=== PATIENT | female | born 1990 | race Caucasian/White ===

== ENCOUNTER 2022-01-28 23:04 | Inpatient (IN) ==
[2022-01-28] MEDS ORDERED: OXYTOCIN 30 UNITS/500 ML BAG IV PRN (23:22)
--- NOTE | 2022-01-28 23:27 | History & Physical Report ---
Date of Service January 28, 2022 Assessment & Plan (1) Active labor at term: Plan: 31-year-old at 40 weeks and 4 days of gestation presenting with regular contractions and change in her cervix, Vital signs stable afebrile, GBS negative, heart rate reassuring, Plan to admit, labs, IV fluids and epidural for pain per patient request, Continue to monitor closely. (2) Uterine contractions at greater than 20 weeks of gestation: (3) Hypothyroid in , antepartum: History of Present Illness Primary Care Provider: NO PCP Is a 31-year-old G1, P0 at 40 weeks and 4 days of gestation who has been feeling contractions since 1 AM this morning. They got more regular and painful after 9:30 p.m. She has been feeling them every 5 minutes and getting more painful and desires epidural for pain. She denies leakage of fluid or vaginal bleeding. She reports good movements. GBS negative CoronaVirus testing was negative yesterday Her has been uncomplicated except, 1. Hypothyroidism during , on levothyroxine, 2. Depression during , on Zoloft, doing well, 3. Obesity Allergies Allergy/AdvReac Type Severity Reaction Status Date / Time No Known Allergies Allergy Verified 06/20/21 15:39 Home Medications Medication Instructions Recorded Confirmed Type metoclopramide HCl 10 mg tablet 10 mg PO Q6H PRN #30 tab 06/03/21 06/20/21 Rx (Reglan) levothyroxine 100 mcg tablet 100 mcg PO DAILY 06/12/21 06/20/21 History (Synthroid) prenat.vits,kevin,[id number] 1 tab PO DAILY 06/12/21 06/20/21 History ondansetron HCl 4 mg tablet 4 mg PO Q6H PRN #20 tab 08/28/21 Rx (Zofran) Patient History Medical History Varicella vaccination Surgical History S/P sinus surgery Family History Mother Thyroid disease Grandmother (Maternal) Thyroid disease Denies family history of Ovarian cancer Breast cancer Colorectal cancer Social History Smoking Status: Never smoker marital status: marital status details: Eugene Thacker (31) [phone] Current Living Situation: Spouse Current Living Situation Comment: lives with spouse, cat-spouse changing litter current occupational status: employed 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 Review of Systems as per Subjective / HPI Physical Exam Constitutional: WD/WN, vitals as above well developed, well nourished, + acute distress (Contractions only) and + obese Gastrointestinal (Abdomen): normal bowel sounds, soft, nontender, no hepatosplenomegaly (Gravid) Genitourinary: normal external appearance OB Exam Abdomen: + vertex Manual OB Exam: + cervical dilation 4 cm, + cervical effacement 70% and + station -2 OB Exam Monitor Tracing: + external uterine monitor used and + category I
[2022-01-28] MEDS ORDERED: ONDANSETRON INJ 2 MG/ML 2 ML VIAL IV PRN (23:28)
[2022-01-29 00:08] LABS: Hematocrit (blood only) 36.5 % (37-47); Hemoglobin 12.1 g/dL (12.0-16.0); Mean Corpuscular Hemoglobin 30.9 pg (25-34); Mean Corpuscular Hgb Conc 33.2 g/dL (32-36); Mean Corpuscular Volume 93.4 fL (80-100); Mean Platelet Volume 9.8 fL (7.4-10.4); Platelet Count 286 K/uL (130-400); RDW Coefficient of Variation 14.6 % (11.5-14.5); RDW Standard Deviation 49.4 fL (36.4-46.3); Red Blood Count 3.91 M/uL (4.2-5.4); White Blood Count 16.12 K/uL (4.8-10.8)
[2022-01-29] MEDS: LACTATED RINGER'S 1,000 ML IV PRN ×4 (03:51→18:03)
[2022-01-29] MEDS ORDERED: ePHEDrine sulfate 50 MG/ML AMP ONE (04:09)
[2022-01-29] MEDS ORDERED: BUPIVACAINE 0.25% 30 ML VIAL ONE (04:10)
[2022-01-29] MEDS ORDERED: fentaNYL 2MCG/ML ROPIVACAINE 1.25MG/ML 100 ML BAG EPI ONE (04:10)
[2022-01-29] MEDS ORDERED: SODIUM CHLORIDE 0.9% INJ 10 ML VIAL ONE (04:10)
[2022-01-29] MEDS ORDERED: fentaNYL citrate 100 MCG/2 ML VIAL ONE (04:10)
[2022-01-29] MEDS ORDERED: diphenhydrAMINE 50 MG/ML VIAL IV PRN (04:28)
[2022-01-29] MEDS ORDERED: NALOXONE HCL 0.4 MG/1 ML VIAL/CARP IV PRN (04:28)
[2022-01-29] MEDS ORDERED: NALOXONE HCL 1 MG in SODIUM CHLORIDE 0.9% 1000ML 1,000 ML IV PRN (04:28)
[2022-01-29] MEDS ORDERED: fentaNYL 2MCG/ML ROPIVACAINE 1.25MG/ML 100 ML BAG EPI PRN (04:28)
[2022-01-29] MEDS ORDERED: NALBUPHINE HCL INJ 10 MG/ML AMP IV PRN (04:28)
[2022-01-29] MEDS ORDERED: ePHEDrine sulfate 50 MG/ML AMP IV PRN (04:28)
--- NOTE | 2022-01-29 04:28 | Anesthesiology Consultation ---
Date of Service January 29, 2022 Assessment & Plan (1) Encounter for pre-operative examination: Chart Review Chart Review: Acceptable Risk for Surgery and Patient NOT seen in Pre Admission Testing Consults Requested none History Height/Weight Height: 5 ft 9 in Weight: 113.398 kg Allergies Allergy/AdvReac Type Severity Reaction Status Date / Time No Known Allergies Allergy Verified 06/20/21 15:39 Medications Home Medications Medication Instructions Recorded Confirmed Last Taken metoclopramide HCl 10 mg tablet 10 mg PO Q6H PRN #30 tab 06/03/21 01/29/22 Unknown (Reglan) levothyroxine 100 mcg tablet 100 mcg PO DAILY 06/12/21 01/29/22 06/19/21 (Synthroid) prenat.vits,kevin,jrh-gfrt-[id number] 1 tab PO DAILY 06/12/21 01/29/22 06/19/21 ondansetron HCl 4 mg tablet 4 mg PO Q6H PRN #20 tab 08/28/21 01/29/22 01/28/22 22:00 (Zofran) Active Medications Generic Name Dose Route Start Last Admin Trade Name Freq PRN Reason Stop Dose Admin Lactated Ringer's 1,000 mls @ 150 mls/hr 01/28/22 23:22 01/29/22 03:51 Lr IV 01/30/22 23:21 999 mls/hr .[id number] PRN Administration L&D Protocol Protocol Past Medical History Medical History Varicella vaccination Past Family History Family History Mother Thyroid disease Grandmother (Maternal) Thyroid disease Denies family history of Ovarian cancer Breast cancer Colorectal cancer Past Surgical History Surgical History S/P sinus surgery Social History Smoking Status: Never smoker Hx Alcohol Use: No Hx Substance Use: No Physical Exam Vital Signs Last Vital Signs Pulse 85 01/29/22 03:47 BP 125/91 01/29/22 03:47 Testing Laboratory Results 01/28/22 23:41 Blood Type A Positive 01/28/22 23:46 Antibody Screen NEGATIVE 01/28/22 23:46
[2022-01-29] MEDS: LEVOTHYROXINE SODIUM 100 MCG TABLET PO SCH (07:05)
[2022-01-29] MEDS ORDERED: OXYTOCIN 30 UNITS/500 ML BAG IV PRN ×2 (07:06→21:11)
[2022-01-29] MEDS: SERTRALINE HCL 50 MG TABLET PO SCH (08:45)
[2022-01-29] MEDS ORDERED: ACETAMINOPHEN 325 MG TAB PO PRN (15:59)
[2022-01-29] MEDS ORDERED: CALCIUM CARBONATE 500 MG CHEWABLE TAB PO PRN (18:30)
[2022-01-29] MEDS ORDERED: CALCIUM CARBONATE 500 MG CHEWABLE TAB ONE (18:33)
--- NOTE | 2022-01-29 20:46 | Delivery Summary ---
Vaginal Delivery Summary Date of Service January 29, 2022 Vaginal Delivery Summary Delivery Note live female KAYDEN over intact perineum with nuchal cord x1 reduced at delivery with delayed cord clamping and Apgars 8/9 weight pending. Cord blood obtained followed by spontaneous delivery of intact placenta. first degree tear repaired with 3/0 Vicryl suture. EBL 150 ml. Final sponge, needle and instrument count are correct. Mom and baby stable.
[2022-01-29] MEDS ORDERED: HYDROCORTISONE ACETATE 25 MG SUPP PR PRN (21:11)
[2022-01-29] MEDS ORDERED: BENZOCAINE 20% AER SPR 82.5 GM CAN EXT PRN (21:11)
[2022-01-29] MEDS ORDERED: bisacodyL 10 MG SUPP PR PRN (21:11)
[2022-01-29] MEDS ORDERED: DIPHTHERIA/TETANUS/PERTUSSIS 0.5 ML SYR/VIAL IM ONE (21:11)
--- NOTE | 2022-01-29 21:17 | Anesthesia Procedure Note ---
Date of Service January 29, 2022 Anesthesia Post Epidural Note Vital Signs Vital Signs: Temp Pulse Resp BP Pulse Ox 37.1 C 91 H 18 134/75 96 01/29/22 19:00 01/29/22 21:03 01/29/22 19:00 01/29/22 21:03 01/29/22 20:28 Pain Intensity Bilateral Sacrum: Pain Intensity: 9 Notes Mental Status: alert / awake / arousable and participated in evaluation Patient Amnestic to Procedure: Yes Nausea / Vomiting: adequately controlled Pain: adequately controlled Airway Patency, RR, SpO2: stable & adequate BP & HR: stable & adequate Hydration State: stable & adequate Anesthetic Complications: no major complications apparent and Pt Satisfied with anesthetic care
[2022-01-29] MEDS: IBUPROFEN 600 MG TAB PO PRN (23:27)
[2022-01-30] MEDS: DOCUSATE SODIUM 100 MG CAP PO SCH ×3 (01:16→20:34)
[2022-01-30] MEDS: IBUPROFEN 600 MG TAB PO PRN ×4 (03:26→20:34)
[2022-01-30] MEDS: LEVOTHYROXINE SODIUM 100 MCG TABLET PO SCH (06:16)
[2022-01-30] MEDS: ACETAMINOPHEN 325 MG TAB PO PRN (06:20)
[2022-01-30 06:28] LABS: Hematocrit (blood only) 27.9 % (37-47); Hemoglobin 9.2 g/dL (12.0-16.0); Mean Corpuscular Hemoglobin 31.3 pg (25-34); Mean Corpuscular Volume 94.9 fL (80-100); Mean Platelet Volume 9.7 fL (7.4-10.4); Platelet Count 257 K/uL (130-400); RDW Coefficient of Variation 14.9 % (11.5-14.5); RDW Standard Deviation 51.7 fL (36.4-46.3); Red Blood Count 2.94 M/uL (4.2-5.4)
--- NOTE | 2022-01-30 07:24 | Obstetrical Progress Note ---
Date of Service January 30, 2022 Assessment & Plan Admission and Anticipated Discharge Date Admission Date: January 28, 2022 Subjective Patient is seen and examined. She feels well, no complaints other than being tired. Ambulating without dizziness Voiding without difficulty Tolerating regular diet with out N&V Bleeding is minimal No fever/ chills/ CP/ SOB/ N&V/ Leg pain Breast feeding without problems Vital Signs Temp Pulse Pulse Resp BP BP Pulse Ox 01/30/22 03:05 37.2 C 89 20 104/69 97 01/29/22 23:20 36.9 C 113 H 20 111/76 97 01/29/22 22:03 102 H 114/65 01/29/22 21:48 96 H 120/73 01/29/22 21:33 105 H 120/70 01/29/22 21:18 88 121/70 01/29/22 21:03 91 H 134/75 01/29/22 21:01 93 H 135/80 01/29/22 20:33 193 H 156/118 H 01/29/22 20:28 125 H 96 01/29/22 20:23 153 H 96 01/29/22 20:18 149 H 151/117 H 96 01/29/22 20:13 130 H 96 01/29/22 20:08 101 H 97 01/29/22 20:03 99 H 126/67 96 01/29/22 19:58 97 H 95 01/29/22 19:53 93 H 96 01/29/22 19:48 87 128/65 96 01/29/22 19:43 87 100 01/29/22 19:38 82 100 01/29/22 19:35 87 116/71 01/29/22 19:33 87 100 01/29/22 19:28 83 100 Lab Results 01/28/22 01/28/22 01/30/22 Range/Units 23:41 23:46 05:47 WBC 16.12 H 18.20 H (4.8-10.8) K/uL RBC 3.91 L 2.94 L (4.2-5.4) M/uL Hgb 12.1 9.2 L (12.0-16.0) g/dL Hct 36.5 L 27.9 L (37-47) % MCV 93.4 94.9 (80-100) fL MCH 30.9 31.3 (25-34) pg MCHC 33.2 33.0 (32-36) g/dL RDW Std Deviation 49.4 H 51.7 H (36.4-46.3) fL RDW Coeff of Kosta 14.6 H 14.9 H (11.5-14.5) % Plt Count 286 257 (130-400) K/uL MPV 9.8 9.7 (7.4-10.4) fL Blood Type A Positive Antibody Screen NEGATIVE PE: General: Alert, orientedx3, NAD Abd: soft, NT, fundus firm, below Umbilicus Perineum intact, Lochia rubra minimal Ext; NT, no edema AP: 31 yo s/p , ppd# 1 VSS Afebrile doing well Continue routine care All questions were answered D/C home tomorrow Results & Data ([facility]) Vital Signs (Past 12 Hours) Vital Signs Temp Pulse Pulse Resp BP BP Pulse Ox 01/30/22 03:05 37.2 C 89 20 104/69 97 01/29/22 23:20 36.9 C 113 H 20 111/76 97 01/29/22 22:03 102 H 114/65 01/29/22 21:48 96 H 120/73 01/29/22 21:33 105 H 120/70 01/29/22 21:18 88 121/70 01/29/22 21:03 91 H 134/75 01/29/22 21:01 93 H 135/80 01/29/22 20:33 193 H 156/118 H 01/29/22 20:28 125 H 96 01/29/22 20:23 153 H 96 01/29/22 20:18 149 H 151/117 H 96 01/29/22 20:13 130 H 96 01/29/22 20:08 101 H 97 01/29/22 20:03 99 H 126/67 96 01/29/22 19:58 97 H 95 01/29/22 19:53 93 H 96 01/29/22 19:48 87 128/65 96 01/29/22 19:43 87 100 01/29/22 19:38 82 100 01/29/22 19:35 87 116/71 01/29/22 19:33 87 100 01/29/22 19:28 83 100
[2022-01-30] MEDS ORDERED: FERROUS SULFATE 325 MG TAB PO SCH (08:00)
[2022-01-30] MEDS: PRENATAL VITAMIN 1 TAB PO SCH (08:23)
[2022-01-30] MEDS: METHYLERGONOVINE MALEATE 0.2 MG TAB PO SCH ×6 (08:24→23:48)
[2022-01-30] MEDS: FERROUS SULFATE 325 MG TAB PO SCH ×3 (08:24→23:48)
[2022-01-30] MEDS: SERTRALINE HCL 50 MG TABLET PO SCH (13:19)
[2022-01-30] MEDS ORDERED: Nursing to Pharmacy Communication SCH (13:30)
[2022-01-30] MEDS ORDERED: diphenhydrAMINE Capsule 25 MG CAP PO PRN (15:39)
[2022-01-30] MEDS ORDERED: bisacodyL 5 MG TABEC PO SCH (20:00)
[2022-01-30] MEDS ORDERED: SERTRALINE HCL 50 MG TABLET PO SCH (21:00)
[2022-01-31] MEDS: ACETAMINOPHEN 325 MG TAB PO PRN ×2 (05:38→11:04)
[2022-01-31] MEDS: METHYLERGONOVINE MALEATE 0.2 MG TAB PO SCH ×2 (05:38→11:05)
[2022-01-31] MEDS: LEVOTHYROXINE SODIUM 100 MCG TABLET PO SCH (05:38)
[2022-01-31 06:18] LABS: Basophils # (auto) 0.03 K/uL (0-0.2); Basophils % (auto) 0.2 %; Eosinophils # (auto) 0.17 K/uL (0-0.5); Eosinophils % (auto) 0.9 %; Hematocrit (blood only) 27.6 % (37-47); Hemoglobin 8.9 g/dL (12.0-16.0); Immature Granulocytes # (auto) 0.12 K/uL (0.00-0.02); Immature Granulocytes % (auto) 0.7 %; Lymphocytes # (auto) 2.28 K/uL (1.2-3.4); Lymphocytes % (auto) 12.5 %; Mean Corpuscular Hemoglobin 31.1 pg (25-34); Mean Corpuscular Hgb Conc 32.2 g/dL (32-36); Mean Corpuscular Volume 96.5 fL (80-100); Mean Platelet Volume 9.5 fL (7.4-10.4); Monocytes # (auto) 1.39 K/uL (0.11-0.59); Monocytes % (auto) 7.6 %; Neutrophils # (auto) 14.18 K/uL (1.4-6.5); Neutrophils % (auto) 78.1 %; Platelet Count 237 K/uL (130-400); RDW Coefficient of Variation 14.6 % (11.5-14.5); RDW Standard Deviation 51.7 fL (36.4-46.3); Red Blood Count 2.86 M/uL (4.2-5.4); White Blood Count 18.17 K/uL (4.8-10.8)
[2022-01-31] MEDS: IBUPROFEN 600 MG TAB PO PRN (08:35)
[2022-01-31] MEDS: PRENATAL VITAMIN 1 TAB PO SCH (08:35)
[2022-01-31] MEDS: FERROUS SULFATE 325 MG TAB PO SCH (08:35)
[2022-01-31] MEDS: DOCUSATE SODIUM 100 MG CAP PO SCH (08:35)
--- NOTE | 2022-01-31 09:52 | Obstetrical Progress Note ---
Date of Service January 31, 2022 Subjective Ambulation: ambulating normally Voiding: no voiding problems Passing Gas:: Yes Diet Tolerance:: regular diet Lochia:: Small Feeding Type:: breast feeding Current Pain Level(1-10): 0 doing well. plans for d/c today Physical Exam Constitutional WD/WN, vitals as above abdomen soft and non-tender. fudus firm below U. no edema. neg Jaden's Results & Data ([facility]) Vital Signs (Past 12 Hours) Vital Signs Temp Pulse Resp BP Pulse Ox 01/31/22 00:00 36.5 C 95 H 16 142/89 H 98 Laboratory Results Laboratory Results - last 48 hr 01/30/22 01/31/22 05:47 05:54 WBC 18.20 H 18.17 H RBC 2.94 L 2.86 L Hgb 9.2 L 8.9 L Hct 27.9 L 27.6 L MCV 94.9 96.5 MCH 31.3 31.1 MCHC 33.0 32.2 RDW Std Deviation 51.7 H 51.7 H RDW Coeff of Kosta 14.9 H 14.6 H Plt Count 257 237 MPV 9.7 9.5 Immature Gran % (Auto) 0.7 Neut % (Auto) 78.1 Lymph % (Auto) 12.5 Hunt % (Auto) 7.6 Eos % (Auto) 0.9 Baso % (Auto) 0.2 Neut # (Auto) 14.18 H Lymph # (Auto) 2.28 Hunt # (Auto) 1.39 H Eos # (Auto) 0.17 Baso # (Auto) 0.03 Immature Gran # (Auto) 0.12 H
== END 2022-01-31 12:30 | disposition home or self-care (01) | DRG 807 ==
LOC: OPB 23:04 → 4S1 23:05 → 4S4 01-29 22:45 → 4E2 01-30 01:26